=== PATIENT | male | born 1985 | race Caucasian/White ===

== ENCOUNTER 2017-08-25 15:58 | Emergency (ER) | payer SELFPAY ==
[2017-08-25] MEDS ORDERED: IBUPROFEN 600MG TABLET PO ONE (19:15)
[2017-08-25 19:36] LABS: HEMATOCRIT. 28.6 % (42.0-52.0); HEMOGLOBIN. 9.1 g/dL (14.0-18.0); MEAN CORPUSCULAR HEMOGLOBIN 24.3 pg (28.0-32.0); MEAN CORPUSCULAR VOLUME 76.7 fL (80.0-94.0); MEAN PLATELET VOLUME 7.4 fl (7.4-10.4); PLATELET 58 x1000/uL (130-400); RED BLOOD CELL COUNT 3.73 mill/uL (4.7-6.1); RED CELL DISTRIBUTION WIDTH 17.2 % (11.6-14.6)
[2017-08-25 19:39] LABS: CHLORIDE 103 mEq/L (98-107)
[2017-08-25 19:55] LABS: PLATELET ESTIMATE DECREASED
[2017-08-25 20:04] LABS: ETHANOL BLOOD 441 mg/dL
[2017-08-25 21:50] LABS: CLARITY URINE CLEAR (CLEAR); COLOR URINE YELLOW (YELLOW); KETONES URINE NEGATIVE (NEGATIVE); LEUKOCYTE ESTERASE URINE NEGATIVE (NEGATIVE); NITRITE URINE NEGATIVE (NEGATIVE); OCCULT BLOOD URINE NEGATIVE (NEGATIVE); PROTEIN URINE NEGATIVE (NEGATIVE); SPECIFIC GRAVITY URINE 1.009 (1.005-1.030); UROBILINOGEN URINE 0.2 E.U./dL (0.2-1.0)
[2017-08-25 22:00] LABS: *AMPHETAMINES SCREEN URINE NEGATIVE (NEGATIVE); *COCAINE SCREEN URINE NEGATIVE (NEGATIVE); CANNABINOID URINE SCREEN NEGATIVE (NEGATIVE); METHADONE URINE SCREEN NEGATIVE (NEGATIVE); OPIATES URINE SCREEN NEGATIVE (NEGATIVE); PHENCYCLIDINE URINE SCREEN NEGATIVE (NEGATIVE)
[2017-08-25 22:01] LABS: *BARBITURATES SCREEN URINE NEGATIVE (NEGATIVE); *BENZODIAZEPINES SCREEN URINE NEGATIVE (NEGATIVE)
[2017-08-25] MEDS ORDERED: CHLORDIAZEPOXIDE 25MG CAPSULE PO ONE (22:15)
[2017-08-26 01:45] VITALS: BP 118/72
[2017-08-26] MEDS ORDERED: CHLORDIAZEPOXIDE 25MG CAPSULE PO ONE (01:45)
== END 2017-08-26 01:53 | disposition home or self-care (01) ==
LOC: ER 16:06
DX: T51.0X1A Toxic effect of ethanol, accidental (unintentional), initial encounter (principal); G92 Toxic encephalopathy; F10.129 Alcohol abuse with intoxication, unspecified; Y90.8 Blood alcohol level of 240 mg/100 ml or more; S20.211A Contusion of right front wall of thorax, initial encounter; R00.0 Tachycardia, unspecified; I49.3 Ventricular premature depolarization; D64.9 Anemia, unspecified; Y04.2XXA Assault by strike against or bumped into by another person, initial encounter; Y93.9 Activity, unspecified; Y92.89 Other specified places as the place of occurrence of the external cause
CPT/HCPCS: 36415; 71045; 80053; 80305; 81003; 83690; 85025; 93005; 99285; G0482; Z7610

== ENCOUNTER 2017-10-26 17:08 | Emergency (ER) | payer SELFPAY ==
[~2017-10-26] VITALS: Ht 172.7 cm; Wt 87.0 kg
[2017-10-26 17:13] VITALS: BP 132/82
== END 2017-10-26 21:30 | disposition left against medical advice (07) ==
LOC: ER 17:08
DX: R10.84 Generalized abdominal pain (principal); Z53.21 Procedure and treatment not carried out due to patient leaving prior to being seen by health care provider